=== PATIENT | female | born 1955 | race Caucasian/White ===

== ENCOUNTER 2018-10-21 13:04 | Emergency (ER) | payer MEDICARE, BC ==
--- NOTE | 2018-10-21 13:50 | EDM.PDOC ---
ED HPI GENERAL MEDICAL PROBLEM - General Chief Complaint: General Stated Complaint: LIGHTS IN EYES, FACE TINGLING Time Seen by Provider: 10/21/18 13:08 Source of Information: Reports: Patient - History of Present Illness Onset: Today, Sudden Onset Date: 10/21/18 Onset Time: 12:30 Duration: Minutes:, Improving Location: Reports: Face Severity: Mild Improves with: Reports: Rest Worsens with: Reports: None Associated Symptoms: Denies: Confusion, Chest Pain, Diaphoresis, Fever/Chills, Headaches, Nausea/Vomiting, Seizure, Shortness of Breath, Syncope, Weakness denies Pain Score (Numeric/FACES): 0 - Related Data Allergies Allergy/AdvReac Type Severity Reaction Status Date / Time Penicillins Allergy Swelling Verified 10/21/18 13:39 quinidine Allergy Stomach Verified 10/21/18 13:39 Upset Past Medical History - Past Health History Medical/Surgical History: Denies Medical/Surgical History Course - Vital Signs Last Recorded V/S: Last Vital Signs Temp 97.4 F 10/21/18 13:32 Pulse 81 10/21/18 13:32 Resp 16 10/21/18 13:32 BP 152/74 H 10/21/18 13:32 Pulse Ox 100 10/21/18 13:32 - Orders/Labs/Meds Orders: Active Orders 24 hr Category Date Time Status EKG Documentation Completion [RC] ASDIRECTED Care 10/21/18 13:33 Active BASIC METABOLIC PANEL,BMP [CHEM] Stat Lab 10/21/18 13:31 Ordered CBC WITH AUTO DIFF [HEME] Stat Lab 10/21/18 13:31 Ordered SEDIMENTATION RATE MANUAL [HEME] Stat Lab 10/21/18 13:31 Ordered TROPONIN I [CHEM] Stat Lab 10/21/18 13:31 Ordered EKG 12 Lead [EK] Routine Ther 10/21/18 13:32 Ordered Departure - Discharge Information Referrals: Mansi Whitehead MD [Primary Care Provider] - - My Orders Last 24 Hours: My Active Orders 10/21/18 13:31 BASIC METABOLIC PANEL,BMP [CHEM] Stat CBC WITH AUTO DIFF [HEME] Stat SEDIMENTATION RATE MANUAL [HEME] Stat TROPONIN I [CHEM] Stat 10/21/18 13:32 EKG 12 Lead [EK] Routine 10/21/18 13:33 EKG Documentation Completion [RC] ASDIRECTED - Assessment/Plan Last 24 Hours: My Active Orders 10/21/18 13:31 BASIC METABOLIC PANEL,BMP [CHEM] Stat CBC WITH AUTO DIFF [HEME] Stat SEDIMENTATION RATE MANUAL [HEME] Stat TROPONIN I [CHEM] Stat 10/21/18 13:32 EKG 12 Lead [EK] Routine 10/21/18 13:33 EKG Documentation Completion [RC] ASDIRECTED
--- NOTE | 2018-10-21 13:55 | EDM.PDOC ---
ED HPI GENERAL MEDICAL PROBLEM - General Chief Complaint: General Stated Complaint: LIGHTS IN EYES, FACE TINGLING Time Seen by Provider: 10/21/18 13:08 Source of Information: Reports: Patient History Limitations: Reports: No Limitations - History of Present Illness INITIAL COMMENTS - FREE TEXT/NARRATIVE: 63-year-old female presents emergency room brought in by her son with complaints of visual light floaters and left facial tingling. Patient states that the symptoms have essentially resolved. She denies any weakness in her upper extremities. She denies any difficulty speech or drooping of the face. She has no headache, no nausea vomiting, no neck pain. The symptoms lasted less than 15 minutes. She initially had the visual light symptoms in both eyes and those resolved within a few minutes. The facial tingling paresthesia had resolved at the time that she really presented to the emergency room. There is no history of stroke, diabetes, coronary artery disease. She's had no prior cardiac problems. She does take simvastatin for high cholesterol. She is otherwise very healthy. No family history of stroke. Her mother had some coronary artery disease in her late 80s. No history of [place] or stenting in her family history. She had a thorough eye examination recently by her medicare sales representative. She reports no visual changes blurriness, loss of light or vision in either of her eyes. She denies any occurrence of a curtain over the eye effect. Onset: Today, Sudden Onset Date: 10/21/18 Onset Time: 12:30 Duration: Minutes:, Improving Location: Reports: Face Severity: Mild Improves with: Reports: Rest Worsens with: Reports: None Associated Symptoms: Denies: Confusion, Chest Pain, Diaphoresis, Fever/Chills, Headaches, Nausea/Vomiting, Seizure, Shortness of Breath, Syncope, Weakness denies Pain Score (Numeric/FACES): 0 - Related Data Allergies Allergy/AdvReac Type Severity Reaction Status Date / Time Penicillins Allergy Swelling Verified 10/21/18 13:39 quinidine Allergy Stomach Verified 10/21/18 13:39 Upset Home Meds: Home Meds Escitalopram [Lexapro] 10 mg PO DAILY 10/21/18 [History] Simvastatin 10 mg PO DAILY 10/21/18 [History] Past Medical History - Past Health History Medical/Surgical History: Denies Medical/Surgical History HEENT History: Reports: Other (See Below) Other HEENT History: opthamalogist is monitoring for glaucoma-currently not diagnosed Cardiovascular History: Reports: High Cholesterol 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 Denies: Eye Discharge, Eye Pain, Sinus Problem, Vertigo, Vision Change Respiratory: Denies: Shortness of Breath Cardiovascular: Denies: Chest Pain, Dyspnea on Exertion, Lightheadedness, Palpitations, Syncope Endocrine: Denies: High Glucose GI/Abdominal: Denies: Abdominal Pain, Nausea, Vomiting : Reports: No Symptoms Musculoskeletal: Denies: Neck Pain, Shoulder Pain, Back Pain Skin: Reports: No Symptoms Neurological: Reports: Tingling (left face). Denies: Confusion, Dizziness, Numbness, Paresthesia, Pre-Existing Deficit, Seizure, Syncope, Trouble Speaking , Difficulty Walking, Weakness, Change in Speech, Gait Disturbance Psychiatric: Denies: Agitation, Anxiety, Confusion Hematologic/Lymphatic: Reports: No Symptoms Immunologic: Reports: No Symptoms ED EXAM, NEURO - Physical Exam Exam: See Below Exam Limited By: No Limitations General Appearance: Alert, WD/WN, No Apparent Distress Eye Exam: Bilateral Eye: EOMI, PERRL Ears: Normal External Exam Nose: Normal Inspection Throat/Mouth: Normal Inspection, Normal Voice, No Airway Compromise Head Exam: Atraumatic, Normocephalic Neck: Normal Inspection, Supple, Non-Tender, Full Range of Motion. No: Lymphadenopathy (L), Lymphadenopathy (R) Respiratory/Chest: No Respiratory Distress, Lungs Clear Cardiovascular: Normal Peripheral Pulses, Regular Rate, Rhythm GI/Abdominal: Soft, Non-Tender Neurological: Alert, Normal Mood/Affect, Normal Dorsiflexion, CN II-XII Intact, Normal Plantar Flexion, Normal Gait, Normal Reflexes, No Motor/Sensory Deficits , Oriented x 3 DTR: 2+: Bicep (R), Bicep (L), Tricep (R), Tricep (L), Patella (R), Patella (L) , Achilles (R) Back Exam: Normal Inspection, Full Range of Motion Extremities: Normal Inspection, Normal Range of Motion, Non-Tender, No Pedal Edema, Normal Capillary Refill Psychiatric: Normal Affect, Normal Mood Skin Exam: Warm, Dry, Intact, Normal Color, No Rash EKG INTERPRETATION EKG Date: 10/21/18 Time: 13:30 Rhythm: NSR Rate (Beats/Min): 75 [place]: Normal P-Wave: Present QRS: Normal ST-T: Other (ST abnormality, possible digitalis effect) QT: Normal Comparison: NA - No Prior EKG EKG Interpretation Comments: Normal sinus rhythm ST abnormality, possible digitalis effect Course - Vital Signs Last Recorded V/S: Last Vital Signs Temp 97.4 F 10/21/18 13:32 Pulse 81 10/21/18 13:32 Resp 16 10/21/18 13:32 BP 152/74 H 10/21/18 13:32 Pulse Ox 100 10/21/18 13:32 - Orders/Labs/Meds Orders: Active Orders 24 hr Category Date Time Status EKG Documentation Completion [RC] ASDIRECTED Care 10/21/18 13:33 Active EKG 12 Lead [EK] Routine Ther 10/21/18 13:32 Ordered Labs: Laboratory Tests 10/21/18 10/21/18 Range/Units 13:35 13:35 WBC 7.42 (5.00-10.00) 10^3/uL RBC 4.00 (3.80-5.50) 10^6/uL Hgb 12.8 (12.0-16.0) g/dL Hct 37.4 (37.0-47.0) % MCV 93.5 H (82.0-92.0) fL MCH 32.0 H (27.0-31.0) pg MCHC 34.2 (32.0-36.0) g/dL RDW 11.8 (11.5-14.5) % Plt Count 275 (150-400) 10^3/uL MPV 10.2 (7.4-10.4) fL Immature Gran % (Auto) 0.3 (0.0-5.0) % Neut % (Auto) 68.3 (50.0-70.0) % Lymph % (Auto) 23.9 (20.0-40.0) % [place] % (Auto) 5.9 (2.0-8.0) % Eos % (Auto) 1.1 (1.0-3.0) % Baso % (Auto) 0.5 (0.0-1.0) % Immature Gran # (Auto) 0.02 (0.00-0.50) 10^3/uL Neut # (Auto) 5.07 (2.50-7.00) 10^3/uL Lymph # (Auto) 1.77 (1.00-4.00) 10^3/uL [place] # (Auto) 0.44 (0.10-0.80) 10^3/uL Eos # (Auto) 0.08 L (0.10-0.30) 10^3/uL Baso # (Auto) 0.04 (0.00-0.10) 10^3/uL ESR 18 (0-20) mm/hr Sodium 142 (136-145) mmol/L Potassium 4.3 (3.3-5.3) mmol/L Chloride 102 (98-115) mmol/L Carbon Dioxide 29.0 (21.0-32.0) mmol/L Anion Gap 15.3 H (5-15) mmol/L BUN 13 (6-25) mg/dL Creatinine 0.85 (0.51-1.17) mg/dL Est Cr Clr Drug Dosing 59.37 mL/min Estimated GFR (MDRD) > 60 mL/min Glucose 107 H (75 - 99) mg/dL Calcium 8.8 (8.7-10.3) mg/dL Troponin I 0.04 (0.00-0.070) ng/mL Departure - Departure Time of Disposition: 15:00 Disposition: Home, Self-Care 01 Clinical Impression: Numbness and tingling of left side of face - Discharge Information Instructions: Stroke Prevention, [id number], Transient Ischemic Attack, Easy- to-Read Referrals: Mansi Whitehead MD [Primary Care Provider] - Forms: ED Department Discharge Additional Instructions: 1. Follow-up with Dr. Mansi Bello next week for medical management and counseling the regarding possible with TIA.. 2. Return to the ER if any sudden onset or change of neurological symptoms occur : -Visual changes -Severe headache -Speech changes or difficulty speaking, slurred speech -Drooping of the face or unilateral extremity weakness -Confusion, or syncopal episode. - My Orders Last 24 Hours: My Active Orders 10/21/18 13:32 EKG 12 Lead [EK] Routine 10/21/18 13:33 EKG Documentation Completion [RC] ASDIRECTED - Assessment/Plan Last 24 Hours: My Active Orders 10/21/18 13:32 EKG 12 Lead [EK] Routine 10/21/18 13:33 EKG Documentation Completion [RC] ASDIRECTED Assessment:: facial numbness; resolved. Eye floaters resolved. Plan: 1. Follow-up with Dr. Mansi Bello next week for medical management and counseling the regarding possible with TIA.. 2. Return to the ER if any sudden onset or change of neurological symptoms occur : -Visual changes -Severe headache -Speech changes or difficulty speaking, slurred speech -Drooping of the face or unilateral extremity weakness -Confusion, or syncopal episode.
[2018-10-21 14:12] LABS: ANION GAP 15.3 mmol/L (5-15); CHLORIDE,CL 102 mmol/L (98-115); SODIUM,NA 142 mmol/L (136-145)
== END 2018-10-21 15:00 | disposition home or self-care (01) ==
LOC: KA.ED 13:04
DX: R20.2 Paresthesia of skin (principal); E78.00 Pure hypercholesterolemia, unspecified; F32.9 Major depressive disorder, single episode, unspecified; Z88.0 Allergy status to penicillin; Z88.8 Allergy status to other drugs, medicaments and biological substances; Z79.899 Other long term (current) drug therapy
CPT/HCPCS: 36415; 80048; 84484; 85025; 85651; 93005; 99284

== ENCOUNTER 2024-02-21 08:42 | Day surgery (SDC) | payer MEDICARE ==
[2024-02-21] MEDS ORDERED: Sodium Chloride 0.9% 10 ML Syringe FLUSH PRN (09:00)
[2024-02-21] MEDS: Lactated Ringers 1,000 ML IV SCH (09:18)
[2024-02-21] MEDS ORDERED: Midazolam 1 MG/ML 2 ML SDV ONE (09:38)
[2024-02-21] MEDS ORDERED: Propofol 200 MG/20 ML SDV ONE (09:39)
== END 2024-02-21 11:41 | disposition home or self-care (01) ==
LOC: KA.SDS 08:42
PROVIDERS: ATTEND Surgery
DX: Z12.11 Encounter for screening for malignant neoplasm of colon (principal); D12.0 Benign neoplasm of cecum; K57.30 Diverticulosis of large intestine without perforation or abscess without bleeding; E78.5 Hyperlipidemia, unspecified; F32.A Depression, unspecified; F41.9 Anxiety disorder, unspecified; H61.20 Impacted cerumen, unspecified ear; M81.0 Age-related osteoporosis without current pathological fracture; K21.9 Gastro-esophageal reflux disease without esophagitis; Z86.010 Personal history of colon polyps; Z88.0 Allergy status to penicillin; Z88.8 Allergy status to other drugs, medicaments and biological substances; Z79.899 Other long term (current) drug therapy; Z98.890 Other specified postprocedural states
CPT/HCPCS: 00811; 99100; J2250; J2704; J3490; J7120